=== PATIENT | male | born 1955 | race Caucasian/White ===

== ENCOUNTER 2018-03-16 14:50 | Observation (INO) | payer OTHER ==
[~2018-03-16] VITALS: Ht 188 cm; Wt 107.6 kg
[~2018-03-16 14:50] MED LIST: ASPI-516 CHEW; ASPI325T PO; ATOR20TA15 PO; ATOR20TA42 PO; CELE200C PO; CLOP75 PO; EZET10 PO; FOLI1TAB PO; FOLI400T PO; LISI-357 PO; METF500T PO; METO25TA3 PO; NIAS10004 PO; PLAV75TA29 PO; TOPR50TA PO
[2018-03-16] MEDS ORDERED: SODIUM CHLOR 0.9% 1000 ML INJ 1,000 ML IV SCH (16:11)
[2018-03-16] MEDS ORDERED: SODIUM CHLORIDE 0.9% FLUSH 10 ML FLUSH IV FLUSH PRN (16:15)
[2018-03-16] MEDS ORDERED: NALOXONE HCL 0.4 MG/ML AMP IV PUSH PRN (16:15)
[2018-03-16] MEDS ORDERED: MAGNESIUM HYDROXIDE SUSP 30 ML CUP PO PRN (16:15)
[2018-03-16 17:45] VITALS: BP 134/84; PULSE 53; RESP 16; TEMP 97.8; O2SAT 97
[2018-03-16 20:00] VITALS: BP 143/68; PULSE 54; RESP 17; TEMP 96.8; O2SAT 97
[2018-03-16] MEDS: SODIUM CHLORIDE 0.9% FLUSH 10 ML FLUSH IV FLUSH SCH (21:00)
[2018-03-16] MEDS: DOCUSATE SODIUM 50 MG/SENNA 8.6 MG TAB PO SCH (21:00)
[2018-03-16] MEDS ORDERED: ONDANSETRON HCL 4 MG/2 ML VIAL IV PUSH PRN ×3 (22:15→22:30)
[2018-03-16] MEDS ORDERED: LORazepam 2 MG/ML VIAL IV PRN ×3 (22:15→22:30)
[2018-03-17] VITALS: BP 143/66; PULSE 49; RESP 17; TEMP 96.5; O2SAT 98
[2018-03-17 04:00] VITALS: BP 143/67; PULSE 45; RESP 17; TEMP 96.9; O2SAT 94
[2018-03-17 06:59] LABS: AUTOMATED NEUTROPHIL # 3.1 TH/MM3 (1.8-7.7); BASOPHIL # 0.1 TH/MM3 (0-0.2); BASOPHIL % 1.2 % (0.0-2.0); EOSINOPHIL # 0.2 TH/MM3 (0-0.4); EOSINOPHIL % 4.2 % (0.0-4.0); LYMPH % 28.9 % (9.0-44.0); LYMPHOCYTE # 1.6 TH/MM3 (1.0-4.8); MEAN CELL VOLUME 92.9 FL (80.0-100.0); MEAN CORPUSCULAR HEMOGLOBIN 30.9 PG (27.0-34.0); MEAN CORPUSCULAR HGB CONC 33.3 % (32.0-36.0); MEAN PLATELET VOLUME 8.8 FL (7.0-11.0); MONO % 10.5 % (0.0-8.0); MONOCYTE # 0.6 TH/MM3 (0-0.9); NEUT % 55.2 % (16.0-70.0); PLATELET COUNT 162 TH/MM3 (150-450); RED BLOOD COUNT 4.84 MIL/MM3 (4.50-5.90); RED CELL DISTRIBUTION WIDTH 14.1 % (11.6-17.2); WHITE BLOOD COUNT 5.5 TH/MM3 (4.0-11.0)
[2018-03-17 07:24] LABS: BICARBONATE 27.1 MEQ/L (21.0-32.0); CALCIUM 8.5 MG/DL (8.5-10.1); CREATININE 0.99 MG/DL (0.60-1.30)
[2018-03-17 07:29] LABS: CHOLESTEROL/ HDL RATIO 4.02 RATIO
[2018-03-17] MEDS: ASPIRIN 325 MG TAB PO SCH (07:43)
[2018-03-17] MEDS: DOCUSATE SODIUM 50 MG/SENNA 8.6 MG TAB PO SCH ×2 (07:43→21:10)
[2018-03-17] MEDS ORDERED: ONDANSETRON ODT 4 MG TAB PO PRN (07:45)
[2018-03-17] MEDS: SODIUM CHLORIDE 0.9% FLUSH 10 ML FLUSH IV FLUSH SCH ×2 (07:52→21:10)
[2018-03-17 08:00] VITALS: BP 135/73; PULSE 44; RESP 17; TEMP 97.7; O2SAT 94
[2018-03-17] MEDS ORDERED: metFORMIN HCL 500 MG TAB PO SCH (09:00)
--- NOTE | 2018-03-17 09:09 | HHI.HP ---
HPI Service [facility] Hospitalists Primary Care Physician Darshan Elizondo MD Admission Diagnosis CVA vs TIA Chief Complaint: dizziness Travel History International Travel<30 Days: No Contact w/Intl Traveler <30 Da: No Traveled to Known Affected Are: No History of Present Illness This a 62-year-old male patient with past medical history which includes ASHD with cardiac stent placement, cervical disc disease, hyperlipidemia, hypertension, obesity, diabetes mellitus type 2. Patient presents the [facility] ER for evaluation of sudden onset dizziness/lightheadedness. Patient was able to working out 03/16/18 lifting weights and in his normal state of health Then around 11:00 AM when he went to his office he began having dizziness /lightheadedness Patient reports he was at his office and he suddenly felt dizzy while he was standing up and he had to sit down, his symptoms got a little bit better but then the dizziness again bothered him while sitting down and was associated with numbness around his hand and face. He describes the dizziness as "his head is tight". He had cervical spine surgery 14 years ago and he has some degree of weakness on his right side but states that today the weakness is worse than his usual. Patient first dizziness episode lasted "a few seconds" and then he sat down and he felt dizzy again while sitting down and at that time he decided to have someone drive him to the ER. He has history of right CAD with stent placement. Patient is currently on Plavix and aspirin. Patient denies shortness of breath, chest pain, nausea, vomiting, diarrhea, constipation, fevers, chills, cough or congestion. Review of Systems Constitutional: COMPLAINS OF: Dizziness, DENIES: Fever, Chills Eyes: DENIES: Blurred vision, Diplopia, Vision loss Respiratory: DENIES: Cough, Sputum production, Shortness of breath Cardiovascular: DENIES: Chest pain, Dyspnea on Exertion Gastrointestinal: DENIES: Abdominal pain, Constipation, Diarrhea, Nausea, Vomiting Musculoskeletal: DENIES: Joint pain, Muscle aches, Joint Swelling Neurologic: COMPLAINS OF: Headache, Localized weakness, DENIES: Abnormal gait, Speech Problems Psychiatric: DENIES: Anxiety, Confusion, Depression Past Family Social History Past Medical History ASHD with cardiac stent placement, cervical disc disease, hyperlipidemia, hypertension, obesity, diabetes mellitus type 2 Past Surgical History Cervical spine surgery, cardiac stent placement in 2000, colonoscopy, knee surgery Reported Medications Atorvastatin (Atorvastatin Calcium) 20 Mg Tab 20 Mg PO HS Aspirin 81 Mg Chew 81 Mg CHEW DAILY Metformin (Metformin HCl) 500 Mg Tab 500 Mg PO BIDPC Plavix (Clopidogrel Bisulfate) 75 Mg Tab 75 Mg PO DAILY Folic Acid 0.4 Mg Tab 400 Mcg PO DAILY Allergies: Coded Allergies: No Known Allergies (Verified , 05/24/08) Family History Noncontributory Social History Denies EtOH use Current tobacco uses, smokes a pipe Denies illicit drug use Physical Exam Vital Signs Vital Signs Date Time Temp Pulse Resp B/P (MAP) Pulse Ox O2 Delivery O2 Flow Rate FiO2 03/17/18 04:00 96.9 45 17 143/67 (92) 94 03/17/18 00:00 96.5 49 17 143/66 (91) 98 03/16/18 20:00 96.8 54 17 143/68 (93) 97 03/16/18 17:45 97.8 53 16 134/84 (101) 97 Physical Exam GENERAL: This is a well-nourished, well-developed patient, in no apparent distress. SKIN: No rashes, ecchymoses or lesions. Cool and dry. HEAD: Atraumatic. Normocephalic. No temporal or scalp tenderness. EYES: Extraocular motions intact. No scleral icterus. No injection or drainage. CARDIOVASCULAR: Regular rate and rhythm RESPIRATORY: Clear to auscultation. Breath sounds equal bilaterally. GASTROINTESTINAL: Abdomen soft, non-tender, nondistended. MUSCULOSKELETAL: Extremities without clubbing, cyanosis, or edema. No joint tenderness, effusion, or edema noted. No calf tenderness. Negative Homans sign bilaterally. NEUROLOGICAL: Awake and alert. No focal deficits noted. Motor and sensory grossly within normal limits. Five out of 5 muscle strength in all muscle groups. Normal speech. hyper reflexive BLE Laboratory Laboratory Tests Test 03/17/18 06:22 White Blood Count 5.5 Red Blood Count 4.84 Hemoglobin 15.0 Hematocrit 45.0 Mean Corpuscular Volume 92.9 Mean Corpuscular Hemoglobin 30.9 Mean Corpuscular Hemoglobin Concent 33.3 Red Cell Distribution Width 14.1 Platelet Count 162 Mean Platelet Volume 8.8 Neutrophils (%) (Auto) 55.2 Lymphocytes (%) (Auto) 28.9 Monocytes (%) (Auto) 10.5 Eosinophils (%) (Auto) 4.2 Basophils (%) (Auto) 1.2 Neutrophils # (Auto) 3.1 Lymphocytes # (Auto) 1.6 Monocytes # (Auto) 0.6 Eosinophils # (Auto) 0.2 Basophils # (Auto) 0.1 CBC Comment DIFF FINAL Differential Comment Blood Urea Nitrogen 14 Creatinine 0.99 Random Glucose 113 Calcium Level 8.5 Sodium Level 142 Potassium Level 3.7 Chloride Level 108 Carbon Dioxide Level 27.1 Anion Gap 7 Estimat Glomerular Filtration Rate 76 Triglycerides Level 121 Cholesterol Level 149 LDL Cholesterol 88 HDL Cholesterol 37.0 Cholesterol/HDL Ratio 4.02 Result Diagram: 03/17/1822 03/17/18 0622 Imaging Last Impressions Head Magnetic Resonance Angiography 03/17/18 0000 Signed Impressions: CONCLUSION: 1. Negative MRA Head ([place]) non contrast. Brain MRI 03/17/18 0000 Signed Impressions: CONCLUSION: 1. Chronic white matter changes characteristic for patient's age. 2. Otherwise, unremarkable MRI of the brain. Caprini VTE Risk Assessment Caprini VTE Risk Assessment: Mod/High Risk (score >= 2) Caprini Risk Assessment Model Point Value = 1 Point Value = 2 Point Value = 3 Point Value = 5 Age 41-60 Minor surgery BMI > 25 kg/m2 Swollen legs Varicose veins or History of unexplained or recurrent spontaneous Oral contraceptives or hormone replacement Sepsis (< 1 month) Serious lung disease, including pneumonia (< 1 month) Abnormal pulmonary function Acute myocardial infarction Congestive heart failure (< 1 month) History of inflammatory bowel disease Medical patient at bed rest Age 61-74 Arthroscopic surgery Major open surgery (> 45 min) Laparoscopic surgery (> 45 min) Malignancy Confined to bed (> 72 hours) Immobilizing plaster cast Central venous access Age >= 75 History of VTE Family history of VTE Factor V Leiden Prothrombin [id number] Lupus anticoagulant Anticardiolipin antibodies Elevated serum homocysteine Heparin-induced thrombocytopenia Other congenital or acquired thrombophilia Stroke (< 1 month) Elective arthroplasty Hip, pelvis, or leg fracture Acute spinal cord injury (< 1 month) Prophylaxis Regimen Total Risk Factor Score Risk Level Prophylaxis Regimen 0-1 Low Early ambulation 2 Moderate Order ONE of the following: *Sequential Compression Device (SCD) *Heparin 5000 units SQ BID 3-4 Higher Order ONE of the following medications: *Heparin 5000 units SQ TID *Enoxaparin/Lovenox 40 mg SQ daily (WT < 150 kg, CrCl > 30 mL/min) *Enoxaparin/Lovenox 30 mg SQ daily (WT < 150 kg, CrCl > 10-29 mL/min) *Enoxaparin/Lovenox 30 mg SQ BID (WT < 150 kg, CrCl > 30 mL/min) AND/OR *Sequential Compression Device (SCD) 5 or more Highest Order ONE of the following medications: *Heparin 5000 units SQ TID (Preferred with Epidurals) *Enoxaparin/Lovenox 40 mg SQ daily (WT < 150 kg, CrCl > 30 mL/min) *Enoxaparin/Lovenox 30 mg SQ daily (WT < 150 kg, CrCl > 10-29 mL/min) *Enoxaparin/Lovenox 30 mg SQ BID (WT < 150 kg, CrCl > 30 mL/min) AND *Sequential Compression Device (SCD) Assessment and Plan Problem List: (1) TIA (transient ischemic attack) ICD Codes: G45.9 - Transient cerebral ischemic attack, unspecified Plan: CVA versus TIA - Patient began to experience dizzy/lightheaded sensation around 11 AM on 2017 after working out at the gym earlier that day. Patient also had associated facial and hand numbness with worsening of his chronic right upper extremity weakness. - CT of the head reviewed and reveals unremarkable CT of the brain no focal or acute intracranial hemorrhage - CTA of the neck reviewed and reveals mild atherosclerotic plaquing involving the proximal portion of both internal carotid arteries. No evidence of any focal narrowing or stenosis - The exam was within normal limits for patient's age - Head CTA reviewed and reveals negative exam. No embolic event to the intracranial circulation to explain current clinical symptoms - MRI reviewed Chronic white matter changes characteristic for patient's age. Otherwise, unremarkable MRI of the brain - MRA reviewed Negative MRA head ([place]) non contrast - 2D echocardiogram ordered and pending - Holter monitor ordered - Head of bed flat -Normal saline at 75 cc/h -Allow permissive hypertension - Continue patient's home Plavix 75 mg daily and increase aspirin to 325 mg daily - consult neurology for further recommendations (2) Diabetes ICD Codes: E11.9 - Type 2 diabetes mellitus without complications Plan: Home metformin 500 mg twice daily on hold as patient had contrasted studies 03/16/2018 Accu-Cheks before meals at bedtime with sliding scale insulin coverage Diabetic heart healthy diet (3) ASHD (arteriosclerotic heart disease) ICD Codes: I25.10 - Atherosclerotic heart disease of [place] coronary artery without angina pectoris Plan: Patient has history of cardiac stents Continue Plavix and aspirin (4) Hyperlipidemia ICD Codes: E78.5 - Hyperlipidemia, unspecified Plan: - Patient's atorvastatin was increased to 20 mg p.o. by his outpatient PCP December 2017 - Lipid profile reviewed and reveals a total cholesterol 149, LDL 88, HDL 37, triglycerides 121 - We will increase atorvastatin to 40 mg p.o. daily (5) Hypertension ICD Codes: I10 - Essential (primary) hypertension Plan: - Allow permissive hypertension at this time (6) Obesity (BMI 30.0-34.9) ICD Codes: E66.9 - Obesity, unspecified Plan: Recommend weight management Patient is currently trying to lose weight and regularly exercises as well as watches his diet Encouraged patient to continue Assessment and Plan Patient examined. Assessment and plan formulated with Kari Roy PA-C. I agree with the above. Physician Certification 2 Midnight Certification Type: Admission for Inpatient Services Order for Inpatient Services The services are ordered in accordance with Medicare regulations or non- Medicare payer requirements, as applicable. In the case of services not specified as inpatient-only, they are appropriately provided as inpatient services in accordance with the 2-midnight benchmark. Estimated LOS (days): 3 days is the estimated time the patient will need to remain in the hospital, assuming treatment plan goals are met and no additional complications. Post-Hospital Plan: Not yet determined Kari Roy March 17, 2018 09:09 Rehan Menchaca DO March 19, 2018 14:39
[2018-03-17] MEDS ORDERED: DEXTROSE 50% IN WATER 50 ML VIAL(D50) IV PUSH PRN ×2 (09:15→15:00)
[2018-03-17] MEDS ORDERED: GLUCAGON 1 MG/ML VIAL OTHER PRN ×2 (09:15→15:00)
[2018-03-17] MEDS: CLOPIDOGREL 75 MG TAB PO SCH (09:32)
--- NOTE | 2018-03-17 10:13 | RADRPT ---
EXAM DATE: 03/17/2018 9:35 AM EDT AGE/SEX: 62 years / Male INDICATIONS: . Right sided weakness. Dizziness and light headed. CLINICAL DATA: This is the patient's subsequent encounter. Patient reports that signs and symptoms h ave been present for 2 days and indicates a pain score of 2/10. MEDICAL/SURGICAL HISTORY: Hypertension. Diabetes mellitus type II. Fusion, cervical. knee surg esther, cardaic stent COMPARISON: [facility] [place], MRI BRAIN W/O CONTRAST, 03/17/2018. . TECHNIQUE: 3D [id number] MRA was performed. Source images, multiplanar STS MIP, and 3D volum e MIP reconstructions were reviewed. FINDINGS: Anterior Circulation: Intracranial Carotid Arteries: Patent. PETAR: There is no evidence for aneurysm, vessel truncation or stenosis, and no evidence for vascular m alformation. MCA: There is no evidence for aneurysm, vessel truncation or stenosis, and no evidence for vascular m alformation. Posterior Circulation: Distal Vertebral Arteries: Distal Vertebral arteries are symmetrical and patent. Basilar Artery: There is no evidence for aneurysm, vessel truncation or stenosis, and no evidence for vascular malformation. PLASTERER MAINTENANCE and Cerebellar Branches: There is no evidence for aneurysm, vessel truncation or stenosis, and no evidence for vascular malformation. CONCLUSION: 1. Negative MRA Head ([place]) non contrast. Electronically signed by: Zay Tipton MD 03/17/2018 10:11 AM EDT
[2018-03-17 12:00] VITALS: BP 160/80; PULSE 49; RESP 18; TEMP 97.2; O2SAT 95
[2018-03-17] MEDS ORDERED: INSULIN ASPART SUPPLEMENTAL SCALE SQ SCH (12:00)
--- NOTE | 2018-03-17 12:44 | RADRPT ---
EXAM DATE: 03/17/2018 8:52 AM EDT AGE/SEX: 62 years / Male INDICATIONS: . Right sided weakness. Dizziness and light headed. CLINICAL DATA: This is the patient's subsequent encounter. Patient reports that signs and symptoms h ave been present for 2 days and indicates a pain score of 2/10. MEDICAL/SURGICAL HISTORY: Hypertension. Diabetes mellitus type II. Fusion, cervical. cardiac s tent, knee sx COMPARISON: No prior exams available for comparison. TECHNIQUE: Multiplanar, multisequence examination of the brain was performed without contrast. FINDINGS: Cerebrum: The ventricles are normal for age. No evidence of midline shift, mass lesion, hemorrhage or acute infarction. No extraaxial fluid collections are seen. The pituitary gland and suprasellar cistern are normal in configuration. White Matter: There are high signal spots in the white matter tracts bilaterally characteristic of i schemic demyelinization. This is characteristic for patient's age. Posterior Fossa: The cerebellum and brainstem are intact. The 4th ventricle is midline. The cerebel lopontine angle is unremarkable. The cerebellar tonsils are normal in position. Diffusion Imaging: No focal areas of restricted diffusion are seen. No evidence of acute infarction . Extracranial: The visualized portions of the orbits and paranasal sinuses are unremarkable. CONCLUSION: 1. Chronic white matter changes characteristic for patient's age. 2. Otherwise, unremarkable MRI of the brain. Electronically signed by: Angel Dunne MD 03/17/2018 12:43 PM EDT
[2018-03-17] MEDS ORDERED: SODIUM CHLORIDE 0.9% FLUSH 10 ML FLUSH IV FLUSH PRN (15:00)
--- NOTE | 2018-03-17 15:35 | MB ---
cc: Dennis Robles MD, PhD DATE: 03/17/2018 REFERRING PHYSICIAN: Dr. Menchaca REASON FOR CONSULTATION: TIA. HISTORY OF PRESENT ILLNESS: Mr. Mantilla is a 62-year-old man who has a history of previous TIA in the past, who was in his usual state of health until yesterday when he suddenly started to develop headache as well as nausea. He then developed suddenly a sense of dysequilibrium and unsteadiness. He felt dizzy as well. He thought he had some numbness in the right hand. He also noted numbness about the perioral area. That morning he was feeling well, was lifting weights and exercising, was at work when this happened. He initially presented to the [facility] ER for evaluation. PAST MEDICAL HISTORY: Remarkable for coronary artery disease with stent placement, history of a TIA when he is 40 years of age, history of cervical myelopathy, status post cervical spine surgery with some mild residual right-sided weakness and numbness. MEDICATIONS: 1. He takes Plavix 75 mg daily. 2. Aspirin 81 mg daily. 3. Atorvastatin 20 mg daily. 4. Folic acid. 5. Metformin. ALLERGIES: NONE KNOWN. SOCIAL HISTORY: He does smoke a pipe. Denies alcohol use. PHYSICAL EXAMINATION: VITAL SIGNS: His blood pressure is 160/80, pulse 49, respiratory rate is 18, temperature 97.8 degrees. NEUROLOGICAL EXAMINATION: Higher cortical functions are normal. Cranial nerves 2-12 are normal in detail. Motor exam demonstrates 5/5 strength of all groups. There is no drift. Fine motor skills are normal. Sensory exam is intact. At times on exam he had some trace weakness on the right in both the arm and the leg, but this is minimal. There is no drift. Cerebellar testing is normal with no dysmetria. Reflexes are 2+ and symmetric with no Babinski. IMAGING STUDIES: MRI of the brain shows chronic ischemic change, no acute change present. MRA of the brain is within normal limits. He had a CT scan of the head done at the [place] ER, which was within normal limits. CTA of the neck: Mild atherosclerosis in both internal carotid arteries, but no significant stenosis. The vertebrals appeared normal. CTA brain is within normal limits as well. LABORATORY DATA: The white count is 7000, hemoglobin 15.8, hematocrit 46.5%, platelet count is 199,000. Sodium is 142, potassium 4.1, chloride 107, CO2 27.6. CPK 164. Troponin less than 0.02. IMPRESSION: Probable vertebrobasilar transient ischemic accident which now has resolved. Tissue plasminogen activator was discussed with the patient in the ER at [place] since he was still within the 3-hour window. According to the chart, the patient related a history of intracranial bleed 20 years ago and therefore elected not to proceed with tissue plasminogen activator. RECOMMENDATIONS: Recommend increasing aspirin to full dose, 325 mg. Continue Plavix 75 mg daily. We will followup on the echocardiogram. I also recommend hypercoagulable workup. His lipid panel has been checked and this is normal including LDL of 88. If no etiology for the event is found, would recommend considering a long-term manager managed backup services such as a LINQ recorder to rule out intermittent atrial fibrillation. Dennis Robles MD, PhD GELA/SB , 02:53 PM , 03:34 PM
[2018-03-17] MEDS: INSULIN ASPART SUPPLEMENTAL SCALE SQ SCH ×2 (17:00→21:00)
[2018-03-17 20:00] VITALS: BP 144/71; PULSE 53; RESP 18; TEMP 97.5; O2SAT 97
[2018-03-17 20:12] VITALS: PULSE 52
[2018-03-17] MEDS ORDERED: SODIUM CHLORIDE 0.9% FLUSH 10 ML FLUSH IV FLUSH SCH (21:00)
[2018-03-17] MEDS ORDERED: ATORVASTATIN 20 MG TAB PO SCH (21:00)
[2018-03-18] VITALS (11 sets, daily range): BP systolic 131–186; BP diastolic 70–90; PULSE 44–97; RESP 16–18; TEMP 97–98.1; O2SAT 95–97
[2018-03-18] MEDS: INSULIN ASPART SUPPLEMENTAL SCALE SQ SCH ×4 (08:00→21:00)
[2018-03-18] MEDS: SODIUM CHLORIDE 0.9% FLUSH 10 ML FLUSH IV FLUSH SCH ×2 (08:59→21:04)
[2018-03-18] MEDS: CLOPIDOGREL 75 MG TAB PO SCH (09:01)
[2018-03-18] MEDS: ASPIRIN 325 MG TAB PO SCH (09:01)
[2018-03-18] MEDS: DOCUSATE SODIUM 50 MG/SENNA 8.6 MG TAB PO SCH ×2 (09:01→21:03)
[2018-03-18] MEDS ORDERED: LOSARTAN 50 MG TAB PO ONE (11:45)
[2018-03-18] MEDS ORDERED: LOSA50TA PO (14:25)
[2018-03-18] MEDS ORDERED: ASA325 PO (14:25)
--- NOTE | 2018-03-18 15:50 | HHI.PR ---
Subjective Remarks Patient reports one episode of dizziness today Offers no other concerns/complaints Objective Vitals Vital Signs Date Time Temp Pulse Resp B/P (MAP) Pulse Ox O2 Delivery O2 Flow Rate FiO2 03/18/18 14:36 48 186/90 (122) 03/18/18 12:00 97.0 46 16 180/85 (116) 97 03/18/18 10:08 97 03/18/18 08:00 97.6 50 18 150/77 (101) 97 03/18/18 05:27 21 03/18/18 05:27 21 03/18/18 00:06 44 03/18/18 00:00 97.0 60 18 131/70 (90) 96 03/17/18 20:12 52 03/17/18 20:00 97.5 53 18 144/71 (95) 97 Result Diagram: 03/17/1862103/17/18621 Other Results Laboratory Tests Test 03/17/18 06:22 03/18/18 06:55 White Blood Count 5.5 TH/MM3 Red Blood Count 4.84 MIL/MM3 Hemoglobin 15.0 GM/DL Hematocrit 45.0 % Mean Corpuscular Volume 92.9 FL Mean Corpuscular Hemoglobin 30.9 PG Mean Corpuscular Hemoglobin Concent 33.3 % Red Cell Distribution Width 14.1 % Platelet Count 162 TH/MM3 Mean Platelet Volume 8.8 FL Neutrophils (%) (Auto) 55.2 % Lymphocytes (%) (Auto) 28.9 % Monocytes (%) (Auto) 10.5 % Eosinophils (%) (Auto) 4.2 % Basophils (%) (Auto) 1.2 % Neutrophils # (Auto) 3.1 TH/MM3 Lymphocytes # (Auto) 1.6 TH/MM3 Monocytes # (Auto) 0.6 TH/MM3 Eosinophils # (Auto) 0.2 TH/MM3 Basophils # (Auto) 0.1 TH/MM3 CBC Comment DIFF FINAL Differential Comment Blood Urea Nitrogen 14 MG/DL Creatinine 0.99 MG/DL Random Glucose 113 MG/DL Calcium Level 8.5 MG/DL Sodium Level 142 MEQ/L Potassium Level 3.7 MEQ/L Chloride Level 108 MEQ/L Carbon Dioxide Level 27.1 MEQ/L Anion Gap 7 MEQ/L Estimat Glomerular Filtration Rate 76 ML/MIN Triglycerides Level 121 MG/DL Cholesterol Level 149 MG/DL LDL Cholesterol 88 MG/DL HDL Cholesterol 37.0 MG/DL Cholesterol/HDL Ratio 4.02 RATIO Rapid Plasma Reagin NON-REACTIVE Imaging Last Impressions Head Magnetic Resonance Angiography 03/17/18 0000 Signed Impressions: CONCLUSION: 1. Negative MRA Head ([place]) non contrast. Brain MRI 03/17/18 0000 Signed Impressions: CONCLUSION: 1. Chronic white matter changes characteristic for patient's age. 2. Otherwise, unremarkable MRI of the brain. Objective Remarks GENERAL: This is a well-nourished, well-developed patient, in no apparent distress. CARDIOVASCULAR: Bradycardic RESPIRATORY: Clear to auscultation. Breath sounds equal bilaterally. GASTROINTESTINAL: Abdomen soft, non-tender, nondistended. Normal active bowel sounds MUSCULOSKELETAL: Extremities without clubbing, cyanosis, or edema. NEURO: Alert & Oriented x4 to person, place, time, situation. Moves all ext x4 A/P Problem List: (1) TIA (transient ischemic attack) ICD Codes: G45.9 - Transient cerebral ischemic attack, unspecified Plan: CVA versus TIA - Patient began to experience dizzy/lightheaded sensation around 11 AM on 2017 after working out at the gym earlier that day. Patient also had associated facial and hand numbness with worsening of his chronic right upper extremity weakness. - CT of the head reviewed and reveals unremarkable CT of the brain no focal or acute intracranial hemorrhage - CTA of the neck reviewed and reveals mild atherosclerotic plaquing involving the proximal portion of both internal carotid arteries. No evidence of any focal narrowing or stenosis - The exam was within normal limits for patient's age - Head CTA reviewed and reveals negative exam. No embolic event to the intracranial circulation to explain current clinical symptoms - MRI reviewed Chronic white matter changes characteristic for patient's age. Otherwise, unremarkable MRI of the brain - MRA reviewed Negative MRA head ([place]) non contrast - 2D echocardiogram ordered and pending - Holter monitor ordered - Head of bed flat -Normal saline at 75 cc/h -Allow permissive hypertension - Continue patient's home Plavix 75 mg daily and increase aspirin to 325 mg daily - consult neurology for further recommendations, appreciate input. Initialed hypercoagulable workup. - Patient presented with dizziness and now has HTN and bradycardia - Start losartan 50 mg PO BID - hydralazine 10 mg PO Q8H as needed for HTN - Patient known to Dr. Ricks, consult placed (2) Diabetes ICD Codes: E11.9 - Type 2 diabetes mellitus without complications Plan: Home metformin 500 mg twice daily on hold as patient had contrasted studies 03/16/2018 Accu-Cheks before meals at bedtime with sliding scale insulin coverage Diabetic heart healthy diet (3) ASHD (arteriosclerotic heart disease) ICD Codes: I25.10 - Atherosclerotic heart disease of [place] coronary artery without angina pectoris Plan: Patient has history of cardiac stents Continue Plavix and aspirin (4) Hyperlipidemia ICD Codes: E78.5 - Hyperlipidemia, unspecified Plan: - Patient's atorvastatin was increased to 20 mg p.o. by his outpatient PCP December 2017 - Lipid profile reviewed and reveals a total cholesterol 149, LDL 88, HDL 37, triglycerides 121 - increase atorvastatin to 40 mg p.o. daily (5) Hypertension ICD Codes: I10 - Essential (primary) hypertension Plan: - Allow permissive hypertension at this time (6) Obesity (BMI 30.0-34.9) ICD Codes: E66.9 - Obesity, unspecified Plan: Recommend weight management Patient is currently trying to lose weight and regularly exercises as well as watches his diet Encouraged patient to continue Assessment and Plan Patient examined. Assessment and plan formulated with Kari Roy PA-C. I agree with the above. Elevated BP. Start ARB. Low HR despite being off BB since admission. Consult pt's Network Associate, Dr. Ricks. Kari Roy March 18, 2018 15:49 Rehan Menchaca DO March 19, 2018 14:40
[2018-03-18] MEDS ORDERED: hydrALAZINE HCL 10 MG TAB PO PRN (16:00)
--- NOTE | 2018-03-18 16:56 | HHI.PR ---
Review/Management Diagnosis vertebrobasilar TIA---stable on plavix and asa Plan continue plavix and asa 325 mg daily Agree with cardiology consult Neurologicaly stable. If patient is discharged over weekend, please have him follow up with me as outpatient in 3 weeks Diagnosis/Plan: Subjective Subjective Comments No new neurologic sx Pt developed hypertension Active Medications Current Medications Medications (Trade) Dose Ordered Sig/Trisha Route Start Time Stop Time Status Last Admin (NS Flush) 2 ml UNSCH PRN IV FLUSH 03/16/18 16:15 (NS Flush) 2 ml BID IV FLUSH 03/16/18 21:00 03/18/18 08:59 (Narcan Inj) 0.4 mg UNSCH PRN IV PUSH 03/16/18 16:15 (Mylene-Colace) 1 tab BID PO 03/16/18 21:00 03/18/18 09:01 (Milk Of Magnesia Liq) 30 ml Q12H PRN PO 03/16/18 16:15 (Aspirin) 325 mg DAILY PO 03/17/18 09:00 03/18/18 09:01 (Plavix) 75 mg DAILY PO 03/17/18 10:00 03/18/18 09:01 (Glucophage) 500 mg BIDPC PO 03/17/18 09:00 Future Hold (NovoLOG SUPPLEMENTAL SCALE) 1 ACHS SQ 03/17/18 17:00 (D50w (Vial) Inj) 50 ml UNSCH PRN IV PUSH 03/17/18 15:00 (Glucagon Inj) 1 mg UNSCH PRN OTHER 03/17/18 15:00 (Cozaar) 50 mg Q12HR PO 03/18/18 21:00 (Apresoline) 10 mg Q8HR PRN PO 03/18/18 16:00 (Lipitor) 40 mg HS PO 03/18/18 21:00 (Norvasc) 10 mg DAILY PO 03/18/18 17:00 (Cozaar) 50 mg DAILY PO 03/18/18 17:00 Allergies Allergies Coded Allergies No Known Allergies (Verified05/24/08) Exam I&O / VS Vital Signs Date Time Temp Pulse Resp B/P (MAP) Pulse Ox O2 Delivery O2 Flow Rate FiO2 03/18/18 14:36 48 186/90 (122) 03/18/18 12:00 97.0 46 16 180/85 (116) 97 03/18/18 10:08 97 03/18/18 08:00 97.6 50 18 150/77 (101) 97 03/18/18 05:27 21 03/18/18 05:27 21 03/18/18 00:06 44 03/18/18 00:00 97.0 60 18 131/70 (90) 96 03/17/18 20:12 52 03/17/18 20:00 97.5 53 18 144/71 (95) 97 Exam Comments alert, speech normal CN intact MOTOR 5/5 BUE and BLE Objective Micro and Labs Laboratory Tests Test 03/18/18 06:55 Rapid Plasma Reagin NON-REACTIVE Dennis Robles MD PhD March 18, 2018 16:56
[2018-03-18] MEDS ORDERED: LOSARTAN 50 MG TAB PO SCH ×2 (17:00→21:00)
[2018-03-18] MEDS: VALSARTAN 80 MG TAB PO SCH (21:02)
[2018-03-18] MEDS: ATORVASTATIN 20 MG TAB PO SCH (21:03)
[2018-03-19] VITALS: BP 141/74; PULSE 62; RESP 17; TEMP 97.6; O2SAT 95
[2018-03-19 08:00] VITALS: BP 170/83; PULSE 46; RESP 17; TEMP 97.6; O2SAT 97
[2018-03-19] MEDS: INSULIN ASPART SUPPLEMENTAL SCALE SQ SCH ×4 (08:00→21:00)
[2018-03-19] MEDS: SODIUM CHLORIDE 0.9% FLUSH 10 ML FLUSH IV FLUSH SCH ×2 (08:21→21:40)
[2018-03-19] MEDS: VALSARTAN 80 MG TAB PO SCH (08:21)
[2018-03-19] MEDS: ASPIRIN 325 MG TAB PO SCH (08:21)
[2018-03-19] MEDS: DOCUSATE SODIUM 50 MG/SENNA 8.6 MG TAB PO SCH ×2 (08:21→21:40)
[2018-03-19] MEDS: CLOPIDOGREL 75 MG TAB PO SCH (08:21)
--- NOTE | 2018-03-19 08:54 | MB ---
cc: Issa Jin MD, Humayun A MD DATE: 03/19/2018 REFERRING PHYSICIAN: Dr. Rehan Menchaca. RIP AND GROOVE MACHINE OPERATOR: Dr. Ezequiel Ricks. I asked by Dr. Menchaca to evaluate patient with history of coronary artery disease, hypertension and bradycardia. HISTORY OF PRESENT ILLNESS: Jimbo Mantilla is a pleasant 62-year-old gentleman with a past medical history significant for coronary artery disease, status post stent x 3 RCA and LAD, hypertension, hyperlipidemia, and diabetes mellitus. He was admitted for sudden onset dizziness, lightheadedness, recurrent episodes of lightheadedness and dizziness. He reports no recent episodes of chest pain with exertion or at rest suggestive of angina or congestive symptoms of orthopnea and paroxysmal nocturnal dyspnea. Emergency room evaluation significant for a head MRA negative. MRI shows unremarkable MRI of the brain. He was noted to have bradycardia, heart rate 40s-50s and severe hypertension. MEDICATIONS PRIOR TO ADMISSION: 1. Atorvastatin 20 mg daily. 2. Aspirin 81 mg daily. 3. Metformin 500 mg b.i.d. 4. Plavix 75 mg daily. 5. Folic acid 400 mcg daily. ALLERGIES: NO KNOWN DRUG ALLERGIES. PAST MEDICAL HISTORY: As above. Additionally, he has history of diabetes mellitus type 2, cervical disease, status post C-spine surgery. SOCIAL HISTORY: He does not drink alcohol. He smokes a pipe occasionally. He denies illicit drug use. FAMILY HISTORY: Not pertinent to present illness. REVIEW OF SYSTEMS: As above. A 12-point review of systems reviewed and noted. No recent fevers, chills, cough and sputum production. No recent gastrointestinal, genitourinary and neurologic symptoms other than above HPI. PHYSICAL EXAMINATION: VITAL SIGNS: Pulse 51, blood pressure 151/76, O2 saturation 97% on room air. HEENT: He is anicteric. PERRLA. No xanthelasma. NECK: Slight JVD. No carotid bruits. LUNGS: Clear to auscultation. HEART: Regular rate and rhythm. No murmurs, gallops or rubs. ABDOMEN: Soft and nontender. EXTREMITIES: Showed no peripheral edema. LABORATORY DATA: WBC 5.5; hemoglobin is 15.0; hematocrit 45.0; platelet count 162,000. Sodium 142, potassium 3.7, BUN 14, creatinine 0.99. Triglycerides 121, total cholesterol 149, LDL 88, HDL 37. IMPRESSION: 1. Severe hypertension. 2. Bradycardia. 3. Dizziness, query vertebrobasilar insufficiency. 4. Aspirin, Plavix, and atorvastatin have been continued. 5. Metoprolol discontinued. 6. Start amlodipine 10 mg daily and valsartan 80 mg daily. 7. Echocardiogram has been ordered. 8. Instructed not have vigorous exercise and heavy weight lifting during his workouts. Thank you for allowing me to contribute to the patient's care. Thank you for this consultation. MD MAME ParsonV/ASHISH , 08:21 AM , 08:53 AM
[2018-03-19 12:00] VITALS: BP 151/79; PULSE 54; RESP 18; TEMP 97.3; O2SAT 97
--- NOTE | 2018-03-19 14:45 | HHI.PR ---
Subjective Remarks No new complaints. Objective Vitals Vital Signs Date Time Temp Pulse Resp B/P (MAP) Pulse Ox O2 Delivery O2 Flow Rate FiO2 03/19/18 12:00 97.3 54 18 151/79 (103) 97 03/19/18 08:00 97.6 46 17 170/83 (112) 97 03/19/18 00:00 97.6 62 17 141/74 (96) 95 03/18/18 23:50 47 03/18/18 20:00 98.1 97 18 152/76 (101) 95 03/18/18 19:22 62 03/18/18 18:44 51 151/76 (101) 03/18/18 18:01 97 21 Result Diagram: 03/17/1862103/17/18621 Imaging Last Impressions Head Magnetic Resonance Angiography 03/17/18 0000 Signed Impressions: CONCLUSION: 1. Negative MRA Head ([place]) non contrast. Brain MRI 03/17/18 0000 Signed Impressions: CONCLUSION: 1. Chronic white matter changes characteristic for patient's age. 2. Otherwise, unremarkable MRI of the brain. Objective Remarks GENERAL: This is a well-nourished, well-developed patient, in no apparent distress. CARDIOVASCULAR: Bradycardic RESPIRATORY: Clear to auscultation. Breath sounds equal bilaterally. GASTROINTESTINAL: Abdomen soft, non-tender, nondistended. Normal active bowel sounds MUSCULOSKELETAL: Extremities without clubbing, cyanosis, or edema. NEURO: Alert & Oriented x4 to person, place, time, situation. Moves all ext x4 A/P Problem List: (1) Bradycardia ICD Codes: R00.1 - Bradycardia, unspecified Plan: - bradycardia may have been etiology of pt's dizziness and subsequent admission - BB stopped upon admission - appreciate input from Cardiology - await Echocardiogram - await Holter - observe telemetry - PPM? (2) TIA (transient ischemic attack) ICD Codes: G45.9 - Transient cerebral ischemic attack, unspecified Plan: CVA versus TIA - Patient began to experience dizzy/lightheaded sensation around 11 AM on 2017 after working out at the gym earlier that day. Patient also had associated facial and hand numbness with worsening of his chronic right upper extremity weakness. - CT of the head reviewed and reveals unremarkable CT of the brain no focal or acute intracranial hemorrhage - CTA of the neck reviewed and reveals mild atherosclerotic plaquing involving the proximal portion of both internal carotid arteries. No evidence of any focal narrowing or stenosis - The exam was within normal limits for patient's age - Head CTA reviewed and reveals negative exam. No embolic event to the intracranial circulation to explain current clinical symptoms - MRI reviewed Chronic white matter changes characteristic for patient's age. Otherwise, unremarkable MRI of the brain - MRA reviewed Negative MRA head ([place]) non contrast - 2D echocardiogram --> still pending - Holter monitor --> pending - appreciate input from Neurology, Dr. Robles - Continue patient's home Plavix 75 mg daily and increase aspirin to 325 mg daily - await results of hypercoag panel - results possible d/t bradycardia - charles gatica - hydralazine 10 mg PO Q8H as needed for HTN - DVT prophylaxis - supportive care (3) Hypertension ICD Codes: I10 - Essential (primary) hypertension Status: Chronic Plan: - charles gatcia - observe BP readings (4) Diabetes ICD Codes: E11.9 - Type 2 diabetes mellitus without complications Status: Chronic Plan: Home metformin 500 mg twice daily on hold as patient had contrasted studies 03/16/2018 Accu-Cheks before meals at bedtime with sliding scale insulin coverage Diabetic heart healthy diet (5) ASHD (arteriosclerotic heart disease) ICD Codes: I25.10 - Atherosclerotic heart disease of [place] coronary artery without angina pectoris Plan: Patient has history of cardiac stents Continue Plavix and aspirin (6) Hyperlipidemia ICD Codes: E78.5 - Hyperlipidemia, unspecified Plan: - Patient's atorvastatin was increased to 20 mg p.o. by his outpatient PCP December 2017 - Lipid profile reviewed and reveals a total cholesterol 149, LDL 88, HDL 37, triglycerides 121 - increase atorvastatin to 40 mg p.o. daily (7) Obesity (BMI 30.0-34.9) ICD Codes: E66.9 - Obesity, unspecified Plan: Recommend weight management Patient is currently trying to lose weight and regularly exercises as well as watches his diet Encouraged patient to continue Problem Qualifiers (1) Hypertension: Qualified Codes: I10 - Essential (primary) hypertension (2) Diabetes: Qualified Codes: E11.8 - Type 2 diabetes mellitus with unspecified complications Rehan Menchaca DO March 19, 2018 14:45
[2018-03-19 16:00] VITALS: BP 149/86; PULSE 48; RESP 17; TEMP 97.5; O2SAT 95
[2018-03-19 20:00] VITALS: BP 161/78; PULSE 50; RESP 18; TEMP 97.9; O2SAT 98
[2018-03-19] MEDS: ATORVASTATIN 20 MG TAB PO SCH (21:40)
[2018-03-20] VITALS (7 sets, daily range): BP systolic 140–170; BP diastolic 66–88; PULSE 42–62; RESP 17–19; TEMP 97.3–97.8; O2SAT 96–98
[2018-03-20] MEDS: INSULIN ASPART SUPPLEMENTAL SCALE SQ SCH ×2 (08:00→11:52)
[2018-03-20] MEDS: VALSARTAN 80 MG TAB PO SCH (09:00)
[2018-03-20] MEDS: ASPIRIN 325 MG TAB PO SCH (09:46)
[2018-03-20] MEDS: SODIUM CHLORIDE 0.9% FLUSH 10 ML FLUSH IV FLUSH SCH (09:46)
[2018-03-20] MEDS: DOCUSATE SODIUM 50 MG/SENNA 8.6 MG TAB PO SCH (09:48)
[2018-03-20] MEDS: CLOPIDOGREL 75 MG TAB PO SCH (09:48)
--- NOTE | 2018-03-20 10:11 | PD.CARD.PN ---
Subjective Subjective Remarks FEELS BETTER NO COMPLAINTS OF CHEST PAIN OR SOB Objective Medications Current Medications Medications (Trade) Dose Ordered Sig/Trisha Route Start Time Stop Time Status Last Admin (NS Flush) 2 ml UNSCH PRN IV FLUSH 03/16/18 16:15 (NS Flush) 2 ml BID IV FLUSH 03/16/18 21:00 03/20/18 09:46 (Narcan Inj) 0.4 mg UNSCH PRN IV PUSH 03/16/18 16:15 (Mylene-Colace) 1 tab BID PO 03/16/18 21:00 03/20/18 09:48 (Milk Of Magnbuzz Liq) 30 ml Q12H PRN PO 03/16/18 16:15 (Aspirin) 325 mg DAILY PO 03/17/18 09:00 03/20/18 09:46 (Plavix) 75 mg DAILY PO 03/17/18 10:00 03/20/18 09:48 (Glucophage) 500 mg BIDPC PO 03/17/18 09:00 Future Hold (NovoLOG SUPPLEMENTAL SCALE) 1 ACHS SQ 03/17/18 17:00 (D50w (Vial) Inj) 50 ml UNSCH PRN IV PUSH 03/17/18 15:00 (Glucagon Inj) 1 mg UNSCH PRN OTHER 03/17/18 15:00 (Apresoline) 10 mg Q8HR PRN PO 03/18/18 16:00 (Lipitor) 40 mg HS PO 03/18/18 21:00 03/19/18 21:40 (Norvasc) 10 mg DAILY PO 03/18/18 17:00 03/20/18 09:48 (Diovan) 80 mg DAILY PO 03/18/18 19:00 03/20/18 09:00 Vital Signs / I&O Vital Signs Date Time Temp Pulse Resp B/P (MAP) Pulse Ox O2 Delivery O2 Flow Rate FiO2 03/20/18 08:00 97.7 42 18 141/76 (97) 96 03/20/18 04:00 97.5 48 18 155/88 (110) 96 03/20/18 00:00 97.5 48 18 140/66 (90) 98 03/19/18 20:00 97.9 50 18 161/78 (105) 98 03/19/18 16:00 97.5 48 17 149/86 (107) 95 03/19/18 12:00 97.3 54 18 151/79 (103) 97 I/O 03/19/18 03/19/18 03/19/18 03/20/18 03/20/18 03/20/18 06:59 14:59 22:59 06:59 14:59 22:59 Intake Total 240 ml 600 ml 360 ml Balance 240 ml 600 ml 360 ml Intake Oral 240 ml 600 ml 360 ml # Voids 2 4 3 # Bowel Movements 0 Physical Exam NAD ANICTERIC, ZARINA FLAT JVD, NO BRUIT LUNGS CLEAR RRR, NO M/G/R ABD BENIGN EXTR WITHOUT EDEMA Assessment and Plan Assessment and Plan HTN BRADYCARDIA VBI MEDICATIONS REVIEWED, CONTINUE SAME OK TO DC FROM CARDIAC STANDPOINT SLOW DECREASE IN HTN IS PREFERABLE Issa Jin MD March 20, 2018 10:11
[2018-03-20] MEDS ORDERED: DIOV80TA4 PO (11:35)
[2018-03-20] MEDS ORDERED: AMLO10 PO (11:35)
--- NOTE | 2018-03-20 11:37 | HHI.DCPOC ---
Discharge Care Plan Diagnosis: (1) Dizziness (2) TIA (transient ischemic attack) (3) Bradycardia (4) Diabetes (5) Hypertension (6) Hyperlipidemia Goals to Promote Your Health * To prevent worsening of your condition and complications * To maintain your health at the optimal level Directions to Meet Your Goals Take your medications as prescribed Follow your dietary instruction Follow activity as directed Keep your appointments as scheduled Take your immunizations and boosters as scheduled If your symptoms worsen call your PCP, if no PCP go to Urgent Care Center or Emergency Room Smoking is Dangerous to Your Health. Avoid second hand smoke Call the 24-hour hour crisis hotline for domestic abuse at Kari Roy March 20, 2018 11:37 Rehan Menchaca DO March 22, 2018 15:27
--- NOTE | 2018-03-20 11:39 | HHI.DS ---
Discharge Summary Admission Date March 16, 2018 at 17:40 Discharge Date: March 20, 2018 Admitting Diagnosis CVA vs TIA (1) Bradycardia Diagnosis: Principal ICD Codes: R00.1 - Bradycardia, unspecified (2) TIA (transient ischemic attack) Diagnosis: Principal ICD Codes: G45.9 - Transient cerebral ischemic attack, unspecified (3) Hypertension Diagnosis: Principal ICD Codes: I10 - Essential (primary) hypertension Status: Chronic (4) Diabetes Diagnosis: Secondary ICD Codes: E11.9 - Type 2 diabetes mellitus without complications Status: Chronic (5) ASHD (arteriosclerotic heart disease) Diagnosis: Secondary ICD Codes: I25.10 - Atherosclerotic heart disease of [place] coronary artery without angina pectoris (6) Hyperlipidemia Diagnosis: Secondary ICD Codes: E78.5 - Hyperlipidemia, unspecified (7) Obesity (BMI 30.0-34.9) Diagnosis: Secondary ICD Codes: E66.9 - Obesity, unspecified Consultants Dr. Robles, neurology Dr. Jin, Cardiology Procedures none Brief History This a 62-year-old male patient with past medical history which includes ASHD with cardiac stent placement, cervical disc disease, hyperlipidemia, hypertension, obesity, diabetes mellitus type 2. Patient presents the [facility] ER for evaluation of sudden onset dizziness/lightheadedness. Patient was able to working out 03/16/18 lifting weights and in his normal state of health Then around 11:00 AM when he went to his office he began having dizziness /lightheadedness Patient reports he was at his office and he suddenly felt dizzy while he was standing up and he had to sit down, his symptoms got a little bit better but then the dizziness again bothered him while sitting down and was associated with numbness around his hand and face. He describes the dizziness as "his head is tight". He had cervical spine surgery 14 years ago and he has some degree of weakness on his right side but states that today the weakness is worse than his usual. Patient first dizziness episode lasted "a few seconds" and then he sat down and he felt dizzy again while sitting down and at that time he decided to have someone drive him to the ER. He has history of right CAD with stent placement. Patient is currently on Plavix and aspirin. Patient denies shortness of breath, chest pain, nausea, vomiting, diarrhea, constipation, fevers, chills, cough or congestion. CBC/BMP: 03/17/18 0622 03/17/18 0622 Significant Findings Laboratory Tests Test 03/18/18 06:55 Imaging Last Impressions Head Magnetic Resonance Angiography 03/17/18 0000 Signed Impressions: CONCLUSION: 1. Negative MRA Head ([place]) non contrast. Brain MRI 03/17/18 0000 Signed Impressions: CONCLUSION: 1. Chronic white matter changes characteristic for patient's age. 2. Otherwise, unremarkable MRI of the brain. PE at Discharge GENERAL: This is a well-nourished, well-developed patient, in no apparent distress. CARDIOVASCULAR: Bradycardic RESPIRATORY: Clear to auscultation. Breath sounds equal bilaterally. GASTROINTESTINAL: Abdomen soft, non-tender, nondistended. Normal active bowel sounds MUSCULOSKELETAL: Extremities without clubbing, cyanosis, or edema. NEURO: Alert & Oriented x4 to person, place, time, situation. Moves all ext x4 Hospital Course TIA (transient ischemic attack) CVA versus TIA - Patient began to experience dizzy/lightheaded sensation around 11 AM on 2017 after working out at the gym earlier that day. Patient also had associated facial and hand numbness with worsening of his chronic right upper extremity weakness. - CT of the head reviewed and reveals unremarkable CT of the brain no focal or acute intracranial hemorrhage - CTA of the neck reviewed and reveals mild atherosclerotic plaquing involving the proximal portion of both internal carotid arteries. No evidence of any focal narrowing or stenosis - The exam was within normal limits for patient's age - Head CTA reviewed and reveals negative exam. No embolic event to the intracranial circulation to explain current clinical symptoms - MRI reviewed Chronic white matter changes characteristic for patient's age. Otherwise, unremarkable MRI of the brain - MRA reviewed Negative MRA head ([place]) non contrast - 2D echocardiogram --> still pending - Holter monitor --> pending - appreciate input from Neurology, Dr. Robles - Continue patient's home Plavix 75 mg daily and increase aspirin to 325 mg daily - await results of hypercoag panel - results possible d/t bradycardia - charles gatica - hydralazine 10 mg PO Q8H as needed for HTN - DVT prophylaxis - supportive care Bradycardia - bradycardia may have been etiology of pt's dizziness and subsequent admission - BB stopped upon admission - appreciate input from Cardiology - await Echocardiogram. Echocardiogram completed but not yet read. Patient may follow up with outpatient cardiology and have echocardiogram as outpatient - Holter - observe telemetry -cleared for DC per cardiology Hypertension - norvasc, diovan - observe BP readings - cleared for DC per cardiology Diabetes Home metformin 500 mg twice daily on hold as patient had contrasted studies 03/16 Accu-Cheks before meals at bedtime with sliding scale insulin coverage Diabetic heart healthy diet ASHD (arteriosclerotic heart disease) Patient has history of cardiac stents Continue Plavix and aspirin Hyperlipidemia - Patient's atorvastatin was increased to 20 mg p.o. by his outpatient PCP December 2017 - Lipid profile reviewed and reveals a total cholesterol 149, LDL 88, HDL 37, triglycerides 121 - increase atorvastatin to 40 mg p.o. daily Obesity (BMI 30.0-34.9) Recommend weight management Patient is currently trying to lose weight and regularly exercises as well as watches his diet Encouraged patient to continue Pt Condition on Discharge: Stable Discharge Disposition: Discharge Home Discharge Instructions DIET: Follow Instructions for: Heart Healthy Diet, Diabetic Diet Activities you can perform: Regular-No Restrictions Follow up Referrals: Cardiology - [address] Ricks Neurology - 3 Weeks with Dennis Robles MD PhD PCP Follow-up - [address] Elizondo New Medications: Amlodipine (Norvasc) 10 Mg Tab 10 MG PO DAILY for blood pressure, #30 TAB 0 Refills Aspirin (Px Aspirin) 325 Mg Tab 325 MG PO DAILY for Blood Clot Prevention, #30 TAB 0 Refills Atorvastatin (Atorvastatin) 20 Mg Tab 40 MG PO HS for Cholesterol Management, #30 TAB 0 Refills Valsartan (Diovan) 80 Mg Tab 80 MG PO DAILY for blood pressure, #30 TAB 0 Refills Continued Medications: Clopidogrel (Plavix) 75 Mg Tab 75 MG PO DAILY for Blood Clot Prevention, #30 TAB 0 Refills Folic Acid (Folic Acid) 0.4 Mg Tab 400 MCG PO DAILY for Nutritional Supplement, TAB 0 Refills Metformin (Metformin) 500 Mg Tab 500 MG PO BIDPC for Blood Sugar Management, #60 TAB 0 Refills Discontinued Medications: Aspirin (Aspirin) 81 Mg Chew 81 MG CHEW DAILY, TAB 0 Refills Atorvastatin (Atorvastatin) 20 Mg Tab 20 MG PO HS for Cholesterol Management, #30 TAB 0 Refills Celecoxib (Celebrex) 200 Mg Cap 200 MG PO DAILY for Pain Management, CAP 0 Refills Metoprolol Tartrate (Metoprolol Tartrate) 25 Mg Tab 25 MG PO DAILY, #30 TAB 0 Refills Additional Information Patient examined. Assessment and plan formulated with Kari Roy PA-C. I agree with the above. Kari Roy March 20, 2018 11:39 Rehan Menchaca DO March 22, 2018 15:27
[2018-03-20] MEDS ORDERED: ATOR20TA15 PO (11:48)
--- NOTE | 2018-03-20 17:50 | ECHRPT ---
Indication: CVA/TIA CONCLUSIONS The left ventricular systolic function is low normal with an estimated ejection fraction in the rang e of 50- 55%. Mild concentric left ventricular hypertrophy. Normal left ventricular size. The left atrial size is mildly dilated. Trace mitral valve regurgitation. Trace aortic valve regurgitation. There is mild tricuspid valve regurgitation. The estimated pulmonary arterial pressure is 35.2 mmHg. BP: / HR: 48 Rhythm: Sinus MEASUREMENTS (Male / Female) Normal Values Technical Quality:Fair 2D ECHO LV Diastolic Diameter PLAX 4.4 cm 4.2 - 5.9 / 3.9 - 5.3 cm LV Systolic Diameter PLAX 3.4 cm IVS Diastolic Thickness 1.1 cm 0.6 - 1.0 / 0.6 - 0.9 cm LVPW Diastolic Thickness 1.1 cm 0.6 - 1.0 / 0.6 - 0.9 cm LV Relative Wall Thickness 0.5 RV Internal Dim ED PLAX 3.7 cm LVOT Diameter 2.6 cm LA Systolic Diameter LX 4.2 cm 3.0 - 4.0 / 2.7 - 3.8 cm M-MODE Aortic Root Diameter MM 3.0 cm LA Systolic Diameter MM 5.1 cm LA Ao Ratio MM 1.7 AV Cusp Separation MM 2.1 cm DOPPLER AV Peak Velocity 173.0 cm/s AV Peak Gradient 12.0 mmHg LVOT Peak Velocity 91.8 cm/s LVOT Peak Gradient 3.4 mmHg AV Area Cont Eq pk 2.8 cm MV Area PHT 3.2 cm Mitral E Point Velocity 61.3 cm/s Mitral A Point Velocity 51.3 cm/s Mitral E to A Ratio 1.2 LV E' Lateral Velocity 9.9 cm/s Mitral E to LV E' Lateral Ratio 6.2 LV E' Septal Velocity 7.0 cm/s Mitral E to LV E' Septal Ratio 8.7 TR Peak Velocity 251.0 cm/s TR Peak Gradient 25.2 mmHg Right Atrial Pressure 10.0 mmHg Pulmonary Artery Systolic Pressu 35.2 mmHg Right Ventricular Systolic Press 35.2 mmHg FINDINGS LEFT VENTRICLE The left ventricular systolic function is low normal with an estimated ejection fraction in the rang e of 50- 55%. Mild concentric left ventricular hypertrophy. Normal left ventricular size. RIGHT VENTRICLE Normal right ventricular size and systolic function. LEFT ATRIUM The left atrial size is mildly dilated. RIGHT ATRIUM The right atrial size is normal. ATRIAL SEPTUM Normal atrial septal thickness without atrial level shunting by limited color doppler interrogation. AORTA The aortic root and proximal ascending aorta are normal in size on limited imaging. MITRAL VALVE Structurally normal mitral valve. Trace mitral valve regurgitation. AORTIC VALVE Trileaflet aortic valve. Trace aortic valve regurgitation. TRICUSPID VALVE Structurally normal tricuspid valve. There is mild tricuspid valve regurgitation. The estimated pulmonary arterial pressure is 35.2 mmHg. PULMONARY VALVE No pulmonary valve regurgitation or stenosis. VESSELS The inferior vena cava is normal in size. PERICARDIUM No pericardial effusion. Arnold Robertson MD, FACC (Electronically Signed) Final Date:20 Mar 2018 17:50
[2018-03-22 16:44] LABS: CARDIOLIPIN IGG AB <9.4 GPL; CARDIOLIPIN IGM AB <9.4 MPL
--- NOTE | 2018-03-23 14:36 | HM ---
Date Performed: 03/18/2018 Time Performed: 07:36:00 HOOKUP DATE: 03/18/18 07:36:00 AM Fri ANALYSIS START TIME: 03/18/2018 7:41:00 AM ANALYSIS END TIME: 03/19/2018 7:45:00 AM PATIENT AGE: 62 PATIENT HEIGHT PATIENT WEIGHT DRUG LIST PATIENT DIAGNOSIS: RIGHT SIDED WEAKNESS CVA TEST NARRATIVE: The patient's average heart rate was 51 BPM. No episodes of tachycardia wer e noted. Heart rates less than 50 BPM were noted 69% of the time. No pauses exceeding 2.0 second s were noted. 166 ventricular ectopics, which represented < 1% of the total beat count, were note d. The highest ventricular ectopic frequency occurred from 10:00 PM to 11:00 PM Fri. During this ti me 34 VE(s) occurred. Ventricular ectopics were observed as 166 isolated beat(s) only. No couplets or runs were noted. 357 supraventricular ectopics, which represented < 1% of the total beat count , were noted. The highest supraventricular ectopic frequency occurred from 01:00 AM to 02:00 AM Sat. During this time 30 SVE(s) occurred. No episodes of ST depression (defined as -1.0 mm or more) were noted in channel 1. In channel 2, a single episode of ST depression (defined as -1.0 mm or more ) occurred at 03:36:22 PM Fri with a maximum depression of -1.1 mm. No episodes of ST depression (de fined as -1.0 mm or more) were noted in channel 3. TEST INTERPRETATION: Sinus rhythm paroxysmal atrial fibrillation with occasional rapid and slow ventricular conduction Occasional dante ature atrial complexes and short atrial runs Signed by : Arnold Robertson
--- NOTE | 2018-03-23 15:00 | PD.CONS ---
Assessment and Plan Assessment Consult received per stroke order set. EMR reviewed. MRI negative for acute stroke. Neurology consult reviewed and indicates TIA. Consult deferred due to no acute stroke. Please reconsult as appropriate. Thank you. Celia Trujillo MD March 23, 2018 14:59
[2018-03-23 19:06] LABS: PROTEIN C ACTIVITY 117 % (70 - 150); PROTEIN S ACTIVITY 104 % (65 - 160)
[2018-03-23 19:51] LABS: DRVVT 1:1 MIX ND (CORRECTED); DRVVT CONFIRM NEGATIVE (NEGATIVE); HEXAGONAL PHASE CONFIRM ND (NEGATIVE)
== END 2018-03-20 17:42 | disposition home or self-care (01) ==
LOC: NEDDLT 17:30 → INTOOBSV 17:40 → N07A 17:40
PROVIDERS: ADMIT Hospitalist; ATTEND Hospitalist
DX: G45.9 Transient cerebral ischemic attack, unspecified (principal); R42 Dizziness and giddiness; R00.1 Bradycardia, unspecified; E11.9 Type 2 diabetes mellitus without complications; I25.10 Atherosclerotic heart disease of native coronary artery without angina pectoris; I10 Essential (primary) hypertension; E78.5 Hyperlipidemia, unspecified; F17.290 Nicotine dependence, other tobacco product, uncomplicated; M50.90 Cervical disc disorder, unspecified, unspecified cervical region; Z95.5 Presence of coronary angioplasty implant and graft; Z79.02 Long term (current) use of antithrombotics/antiplatelets; Z79.82 Long term (current) use of aspirin; E66.9 Obesity, unspecified; R53.1 Weakness; R11.0 Nausea
CPT/HCPCS: 70450; 70496; 70498; 70544; 70551; 80048; 80053; 80061; 80307; 81001; 81240; 81241; 82550; 82948; 84484; 85025; 85303; 85306; 85384; 85597; 85610; 85613; 85730; 86147; 86592; 93005; 93225; 93226; 93306; 96361; 96374; 99285; G0378; J0360; J2060; J7030; Q9967